=== PATIENT | male | born 1990 | race Caucasian/White ===

== ENCOUNTER 2016-10-23 02:27 | Emergency (ER) | payer SELFPAY ==
[2016-10-23 02:40] VITALS: BP 115/75; PULSE 72; RESP 16; TEMP 98.4; O2SAT 94
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
== END 2016-10-23 03:20 | disposition home or self-care (01) ==
DX: J06.9 Acute upper respiratory infection, unspecified (principal); F17.200 Nicotine dependence, unspecified, uncomplicated